=== PATIENT | female | born 1990 | race Caucasian/White ===

== ENCOUNTER 2018-08-15 14:13 | Emergency (ER) | payer OTHER, BC ==
[~2018-08-15] VITALS: Ht 170.2 cm; Wt 104.6 kg
[~2018-08-15 14:13] MED LIST: HYDR-4383 PO; IBUP-1985 PO; ONDA4TAB6 PO; PANT-47 PO
[2018-08-15 14:35] VITALS: BP 111/75
== END 2018-08-15 16:05 | disposition home or self-care (01) ==
LOC: ER 14:13
DX: O9A.212 Injury, poisoning and certain other consequences of external causes complicating pregnancy, second trimester (principal); M54.2 Cervicalgia; M54.5 Low back pain; Z88.0 Allergy status to penicillin; Z3A.16 16 weeks gestation of pregnancy; Z79.899 Other long term (current) drug therapy; V49.88XA Car occupant (driver) (passenger) injured in other specified transport accidents, initial encounter; Y93.89 Activity, other specified; Y92.413 State road as the place of occurrence of the external cause; Y99.9 Unspecified external cause status
CPT/HCPCS: 99281